=== PATIENT | female | born 1945 | race Caucasian/White ===

== ENCOUNTER → 2017-04-12 | Outpatient (CLI) | payer MEDICARE ==
[~2017-04-12] MED LIST: AMLO-1 PO; AMLO-96 PO; AMLO2.5T74 PO; AMOX-559 PO; ASPI-1471 PO; ASPI-715 PO; ATOR20TA65 PO; BENZ200C15 PO; CALC-649 PO; CEPH-13 PO; CHOL200025 PO; DIPH0.5D12 IM; ERG400 PO; ESOM40CA42 PO; EZE10 PO; FENO130C PO; FENO134C5 PO; FLAX100042 PO; FURO-43 PO; GLIM1TAB25 PO; GLY25 PO; GOLYTE PO; HTN MED; HYDR12.558 PO; LEV112 PO; LEV125 PO; LEVO137T22 PO; LEVO137T23 PO; LEVO150T72 PO; LEVO150T78 PO; LISI-362 PO; LOSA-54 PO; METF-420 PO; METF10002 PO; METF500T4 PO; METXR500 PO; MULT1CAP41 PO; PNEU0.5D3 IM; POTA10CA61 PO; POTA20TA85 PO; PRE20 PO; RANI150C17 PO; REPA0.5T4 PO; ROSU5TAB18 PO; Return to Work; SITA50TA6 PO; SULF-198 PO; VALS320T12 PO; VALS40TA6 PO
== END ==
LOC: LAB 14:45
PROVIDERS: ATTEND Nurse Practitioner Family
DX: E11.9 Type 2 diabetes mellitus without complications (principal); R30.0 Dysuria; B96.20 Unspecified Escherichia coli [E. coli] as the cause of diseases classified elsewhere
CPT/HCPCS: 36415; 81001; 83036; 87077; 87088; 87186

== ENCOUNTER → 2018-01-04 | Outpatient (CLI) | payer MEDICARE ==
[~2018-01-04] MED LIST changes: +AMLO-111 PO; -AMLO-96 PO; -AMLO2.5T74 PO; +AMLO2.5T76 PO; -METF-420 PO; +METF-452 PO; -ROSU5TAB18 PO; +ROSU5TAB3 PO
[2018-01-04 10:33] LABS: PLATELET COUNT, AUTOMATED 242 K/uL (150-450)
== END ==
LOC: LAB 10:22
PROVIDERS: ATTEND Nurse Practitioner Family
DX: E03.9 Hypothyroidism, unspecified (principal); E11.9 Type 2 diabetes mellitus without complications; I10 Essential (primary) hypertension; E78.5 Hyperlipidemia, unspecified
CPT/HCPCS: 36415; 82040; 82247; 82310; 82374; 82435; 82465; 82565; 82947; 83036; 83718; 84075; 84132; 84155; 84295; 84443; 84450; 84460; 84478; 84520; 85025

== ENCOUNTER → 2018-01-10 | Outpatient (CLI) | payer MEDICARE ==
[~2018-01-10] MED LIST changes: +LEVO125T77 PO; +RANI75TA5 PO; +TRIA10.8
== END ==
LOC: LAB 16:39
PROVIDERS: ATTEND Nurse Practitioner Family
DX: N39.0 Urinary tract infection, site not specified (principal)
CPT/HCPCS: 81001; 87088

== ENCOUNTER → 2018-01-13 | Outpatient (CLI) | payer MEDICARE | LOC: LAB 11:14 | PROVIDERS: ATTEND Nurse Practitioner Family | DX: N39.0 Urinary tract infection, site not specified (principal) | CPT/HCPCS: 81001 ==

== ENCOUNTER → 2018-04-25 | Outpatient (CLI) | payer MEDICARE ==
[~2018-04-25] MED LIST changes: -AMLO-111 PO; +AMLO-125 PO; -AMLO2.5T76 PO; +AMLO2.5T78 PO; -RANI75TA5 PO; +RANI75TA51 PO
== END ==
LOC: LAB 14:40
PROVIDERS: ATTEND Nurse Practitioner Family
DX: E03.9 Hypothyroidism, unspecified (principal); E11.9 Type 2 diabetes mellitus without complications; I10 Essential (primary) hypertension; R30.9 Painful micturition, unspecified; B96.89 Other specified bacterial agents as the cause of diseases classified elsewhere
CPT/HCPCS: 36415; 81001; 82040; 82247; 82310; 82374; 82435; 82565; 82947; 83036; 84075; 84132; 84155; 84295; 84443; 84450; 84460; 84520; 87077; 87088; 87186

== ENCOUNTER → 2018-06-22 | Outpatient (CLI) | payer MEDICARE ==
[~2018-06-22] MED LIST changes: +FLU180SY11 IM; +GLIM2TAB43 PO
== END ==
LOC: LAB 14:31
PROVIDERS: ATTEND Nurse Practitioner Family
DX: R30.0 Dysuria (principal); B96.20 Unspecified Escherichia coli [E. coli] as the cause of diseases classified elsewhere
CPT/HCPCS: 81001; 87077; 87088; 87186

== ENCOUNTER → 2018-08-26 | Outpatient (CLI) | payer MEDICARE ==
[~2018-08-26] MED LIST changes: -DIPH0.5D12 IM; +DIPH0.5S2 IM; +VARI50KI IM
== END ==
LOC: LAB 13:26
PROVIDERS: ATTEND Nurse Practitioner Family
DX: E78.5 Hyperlipidemia, unspecified (principal); I10 Essential (primary) hypertension; E11.9 Type 2 diabetes mellitus without complications
CPT/HCPCS: 36415; 82040; 82247; 82310; 82374; 82435; 82565; 82947; 83036; 84075; 84132; 84155; 84295; 84443; 84450; 84460; 84520

== ENCOUNTER → 2018-08-29 | Outpatient (CLI) | payer MEDICARE | LOC: LAB 14:25 | PROVIDERS: ATTEND Nurse Practitioner Family | DX: Z11.59 Encounter for screening for other viral diseases (principal); R30.0 Dysuria; R35.0 Frequency of micturition; E11.9 Type 2 diabetes mellitus without complications | CPT/HCPCS: 36415; 81001; G0472; 86803 ==